=== PATIENT | female | born 1955 | race Caucasian/White ===

== ENCOUNTER 2018-09-27 18:32 | Inpatient (IN) | payer MEDICAID, OTHER ==
[~2018-09-27] VITALS: Ht 167.6 cm; Wt 129.0 kg
[~2018-09-27 18:32] MED LIST: FLUC150T PO; LISI40TA3 PO
[2018-09-27] MEDS ORDERED: SOD CHLORIDE 0.9% 1,000 ML IV STA (18:40)
--- NOTE | 2018-09-27 18:46 | ERD ---
ER Documentation Chief Complaint Chief Complaint bib ra from board and care for mild dystonic reaction due to aod psych meds HPI 62-year-old woman with history of psychiatric illness brought in by EMS from [facility] facility for tonic muscle spasming of the neck and lower face lasted for about 10 to 15 minutes. There was no cyanosis or skin discoloration, no complaints of chest pain or shortness of breath, no vomiting, no loss of bowel or bladder control, and no full body tonic-clonic activity noted. Patient has chronic dysphasia and cognitive debility so HPI was difficult to fully obtain although it was supplemented by speaking to EMS and reviewing facility notes. Patient denies suicidal homicidal ideation. Patient was transported here without further complications ROS All systems reviewed and are negative except as per history of present illness. Medications Home Meds Active Scripts Lisinopril* (Lisinopril*) 40 Mg Tablet, 40 MG PO DAILY, #30 TAB Prov:SIMIN MERINO MD 11/25/15 Fluconazole* (Diflucan*) 150 Mg Tablet, 150 MG PO ONCE, #1 TAB Prov:SIMIN MERINO MD 11/25/15 Allergies Allergies: Coded Allergies: No Known Allergy (Unverified , 09/27/18) PMhx/Soc Morbid obesity, hypertension, psychiatric illness, mild cognitive impairment, chronic expressive dysarthria, possible obstructive sleep apnea, hypertension FmHx Family History: No diabetes Physical Exam Vitals Vital Signs Date Temp Pulse Resp B/P (MAP) Pulse Ox O2 O2 Flow FiO2 Time Delivery Rate 09/27/18 71 18 186/81 95 Nasal 4.0 20:34 (116) Cannula 09/27/18 98.9 86 19 142/81 100 18:41 (101) Physical Exam GENERAL: Well-developed, well-nourished, appears dehydrated, dyspneic, afebrile HEENT: Dry mucous membranes, pink conjunctiva, no cervical spine tenderness or step-off deformities, no goiter, no jaundice or icterus, extraocular movements intact without pain. NEURO: Alert and oriented 2, expressive dysarthria with garbled speech which is her baseline. Moving all extremities, no focal deficits or facial asymmetry, pupils equal round reactive to light CARDIAC: Regular rate and rhythm, no murmurs rubs or gallops LUNGS: Poor breath sounds bilaterally ABDOMEN: Soft nontender, no guarding, no masses. SKIN: Warm and dry to touch, no abrasions, contusions, or hematomas, no lacerations, no ecchymosis, no target lesions, and without ulcers EXTREMITIES: No clubbing cyanosis, pitting and nonpitting edema noted to the lower extremities bilaterally, calves are bilaterally symmetrical, no Homans sign, no popliteal cord sign. Distal pulses equal and bilateral PSYCH: Agitated and anxious no Result Diagram: 09/27/18191009/27/181910 Results 24 hrs Laboratory Tests Test 09/27/18 19:01 09/27/18 19:11 Urine Color STRAW Urine Clarity CLEAR Urine pH 5.0 Urine Specific [place] 1.015 Urine Ketones NEGATIVE mg/dL Urine Nitrite NEGATIVE mg/dL Urine Bilirubin NEGATIVE mg/dL Urine Urobilinogen NEGATIVE mg/dL Urine Leukocyte Esterase NEGATIVE Harpal/ul Urine Hemoglobin NEGATIVE mg/dL Urine Glucose NEGATIVE mg/dL Urine Total Protein NEGATIVE mg/dl White Blood Count 10.3 10^3/ul Red Blood Count 5.00 10^6/ul Hemoglobin 14.2 g/dl Hematocrit 43.2 % Mean Corpuscular Volume 86.4 fl Mean Corpuscular Hemoglobin 28.4 pg Mean Corpuscular Hemoglobin Concent 32.9 g/dl Red Cell Distribution Width 18.2 % Platelet Count 426 10^3/UL Mean Platelet Volume 8.7 fl Immature Granulocytes % 0.200 % Neutrophils % 71.7 % Lymphocytes % 17.8 % Monocytes % 8.6 % Eosinophils % 1.1 % Basophils % 0.6 % Nucleated Red Blood Cells % 0.0 /100WBC Immature Granulocytes # 0.020 10^3/ul Neutrophils # 7.4 10^3/ul Lymphocytes # 1.8 10^3/ul Monocytes # 0.9 10^3/ul Eosinophils # 0.1 10^3/ul Basophils # 0.1 10^3/ul Nucleated Red Blood Cells # 0.0 10^3/ul Sodium Level 135 mmol/L Potassium Level 3.9 mmol/L Chloride Level 98 mmol/L Carbon Dioxide Level 25 mmol/L Anion Gap 12 Blood Urea Nitrogen 26 mg/dl Creatinine 0.79 mg/dl Est Glomerular Filtrat Rate mL/min > 60 mL/min Glucose Level 62 mg/dl Calcium Level 9.6 mg/dl Total Bilirubin 0.3 mg/dl Direct Bilirubin 0.00 mg/dl Indirect Bilirubin 0.3 mg/dl Aspartate Amino Transf (AST/SGOT) 24 IU/L Alanine Aminotransferase (ALT/SGPT) 18 IU/L Alkaline Phosphatase 89 IU/L Troponin I < 0.012 ng/ml Total Protein 8.3 g/dl Albumin 4.3 g/dl Globulin 4.00 g/dl Albumin/Globulin Ratio 1.07 Lipase 35 U/L Current Medications Medications Dose Sig/Marli Start Time Status Last (Trade) Ordered Route PRN Stop Time Admin Dose Reason Admin Lorazepam 1 mg ONCE ONCE 09/27/18 DC 09/27/18 (Ativan) PO 19:00 19:18 09/27/18 19:01 Sodium 1,000 ml @ Q1H STAT 09/27/18 DC 09/27/18 Chloride 1,000 mls/hr IV 18:40 19:19 09/27/18 19:39 Furosemide 40 mg ONCE ONCE 09/27/18 DC 09/27/18 (Lasix) IV 20:30 20:28 09/27/18 20:31 Procedures/MDM IV line was established patient was placed on air sampling and monitoring rhythm strip revealed a sinus rhythm at about 80 bpm with upright P and T waves. Patient was afebrile EKG performed, read by me revealed a normal sinus rhythm at 88 bpm, left axis deviation, right ventricular conduction delay QRS duration 102 ms, no concerning ST elevations or depressions noted I administered lorazepam 1 mg p.o. and 300 cc normal saline IV for initial dehydration. 1 view chest x-ray performed, read by me reveals cardiomegaly and bilateral pulmonary vascular congestion consistent with decompensated heart failure. Peters catheter was placed and administered furosemide 40 mg IV x1 CBC was normal, electrolytes revealed dehydration with a BUN/creatinine of 26/0.8, liver function tests were normal, troponin was negative, urinalysis was negative for infection. Patient's room air oxygenation is between 90-92% it appears she does have some component of obstructive sleep apnea but given her chest x-ray she will be admitted to telemetry setting for continued diuresis and cardiology consultation for possible decompensated heart failure. Departure Diagnosis: Primary Impression: Psychiatric illness Additional Impressions: Dehydration CHF (congestive heart failure) Heart failure type: combined systolic and diastolic Heart failure chronicity: acute Qualified Codes: I50.41 - Acute combined systolic (congestive) and diastolic (congestive) heart failure Condition: LAISHA Ellison MD Sep 27, 2018 18:46
[2018-09-27] MEDS ORDERED: LORAZEPAM 1 MG TAB PO ONE (19:00)
[2018-09-27] MEDS ORDERED: FUROSEMIDE 40 MG INJ IV ONE (20:30)
[2018-09-28] VITALS (13 sets, daily range): BP systolic 138–177; BP diastolic 65–76; PULSE 68–87; RESP 21–24; Ht 167.6 cm; Wt 129.0 kg
[2018-09-28] MEDS ORDERED: NACL 0.9% 3 ML SYG IV SCH (03:00)
[2018-09-28] MEDS ORDERED: ALBUTEROL/IPRATROPIUM (NEB) 3 ML AMP HHN PRN (03:00)
[2018-09-28] MEDS ORDERED: ONDANSETRON 4 MG INJ IV PRN (03:00)
[2018-09-28] MEDS: SOD CHLORIDE 0.9% 1,000 ML IV SCH ×2 (03:40→14:20)
[2018-09-28] MEDS: ACETAMINOPHEN 325 MG TAB PO PRN (03:41)
[2018-09-28] MEDS: LORAZEPAM 2 MG INJ IV PRN ×2 (03:54→22:24)
[2018-09-28] MEDS ORDERED: HYDROmorphONE 1 MG/ML SYG IV ONE (04:30)
[2018-09-28] MEDS: LEVOFLOXACIN 500MG/D5W (PMX) 100 ML IVPB SCH (05:01)
--- NOTE | 2018-09-28 08:05 | HP ---
Date/Time of Note Date/Time of Note DATE: 09/28/18 TIME: 07:58 Assessment/Plan VTE Prophylaxis Pharmacological prophylaxis: heparin Lines/Catheters IV Catheter Type (from Nrs): Saline Lock Urinary Cath still in place: Yes Reason Cath still needed: terminal illness/intractable pain Assessment/Plan Assessment/Plan 1. Frequent falls, slurred speech, rule out CVA. Symptom could also be medication induced. (Reportedly patient have taken extra pills of her home medication, unknown which kind) -Head CT negative for acute findings. Patient attributed her worsening slurred speech to schizophrenia -Telemetry monitoring -MRI of the brain, carotid Doppler ultrasound and 2D echo -Aspirin, statin -PT eval 2. History of schizophrenia: Patient reported that she gets periodic injections. No suicidal homicidal ideation 3. Hypertension: BP is acceptable range. Continue home meds 4. Morbid obesity with a BMI of 46: Weight reduction advised Result Diagram: 09/28/18 0359 09/28/18 0359 Results 24hrs Laboratory Tests Test 09/27/18 19:01 09/27/18 19:11 09/28/18 03:59 Urine Color STRAW Urine Clarity CLEAR Urine pH 5.0 Urine Specific [place] 1.015 Urine Ketones NEGATIVE Urine Nitrite NEGATIVE Urine Bilirubin NEGATIVE Urine Urobilinogen NEGATIVE Urine Leukocyte Esterase NEGATIVE Urine Hemoglobin NEGATIVE Urine Glucose NEGATIVE Urine Total Protein NEGATIVE White Blood Count 10.3 11.0 H Red Blood Count 5.00 4.78 Hemoglobin 14.2 13.8 Hematocrit 43.2 41.6 Mean Corpuscular Volume 86.4 87.0 Mean Corpuscular Hemoglobin 28.4 L 28.9 L Mean Corpuscular Hemoglobin Concent 32.9 33.2 Red Cell Distribution Width 18.2 H 18.3 H Platelet Count 426 H 387 Mean Platelet Volume 8.7 8.9 Immature Granulocytes % 0.200 0.300 Neutrophils % 71.7 78.7 H Lymphocytes % 17.8 13.1 L Monocytes % 8.6 7.0 Eosinophils % 1.1 0.4 Basophils % 0.6 0.5 Nucleated Red Blood Cells % 0.0 0.0 Immature Granulocytes # 0.020 0.030 Neutrophils # 7.4 8.7 H Lymphocytes # 1.8 1.5 Monocytes # 0.9 0.8 Eosinophils # 0.1 0.0 Basophils # 0.1 0.1 Nucleated Red Blood Cells # 0.0 0.0 Sodium Level 135 140 Potassium Level 3.9 4.3 Chloride Level 98 100 Carbon Dioxide Level 25 27 Anion Gap 12 13 Blood Urea Nitrogen 26 H 23 H Creatinine 0.79 0.64 Est Glomerular Filtrat Rate mL/min > 60 > 60 Glucose Level 62 L 102 # Calcium Level 9.6 9.2 Total Bilirubin 0.3 0.4 Direct Bilirubin 0.00 0.00 Indirect Bilirubin 0.3 0.4 Aspartate Amino Transf (AST/SGOT) 24 24 Alanine Aminotransferase (ALT/SGPT) 18 22 Alkaline Phosphatase 89 70 Troponin I < 0.012 < 0.012 Total Protein 8.3 H 6.8 # Albumin 4.3 3.7 Globulin 4.00 H 3.10 Albumin/Globulin Ratio 1.07 1.19 Lipase 35 Hemoglobin A1c 7.8 H Magnesium Level 1.9 Creatine Kinase 173 Creatine Kinase Index 1.1 Creatinine Kinase MB (Mass) 1.97 Triglycerides Level 67 Cholesterol Level 112 LDL Cholesterol, Calculated 45 HDL Cholesterol 54 Cholesterol/HDL Ratio 2.0 Thyroid Stimulating Hormone (TSH) Pending HPI/ROS Admit Date/Time Admit Date/Time Sep 27, 2018 at 20:23 Hx of Present Illness Patient is a 62-year-old morbidly obese female with a history of hypertension, schizophrenia who presents the ER complaining of frequent falls and generalized weakness. She said that she fell down 3 times yesterday twice at the [facility] and one at the [facility] pharmacy. The first time, she was dressing up when she fell. Denied loss of consciousness or head injury. When she was at [facility], she was just walking when she all of a sudden blacked out. The same thing happened her again at her house in the kitchen where she blacked out. She also reported having had left upper extremity weakness and then right upper extremity weakness a few days ago. Patient may have taken extra doses of her home medications. As further treatment for schizophrenia is concerned, she said she periodically gets injections. Denied chest pain, lightheadedness or palpitations. Patient has slurred speech. She said she had a minimal slurred s peech in the past, which has worsened since yesterday. She denied a history of stroke and attributed to her slurred speech to her schizophrenia. Patient also had similar symptoms last week and went to [facility] where she had a negative head CT in the ER. When she presented to the ER, vitals were stable. Head CT without acute findings. EKG without ST-T wave abnormalities PMH/Family/Social Past Medical History Medical History: other (See HPI) Medications Current Medications Sodium Chloride 1,000 ml @ 80 mls/hr [id number] IV Last administered on 09/28/18at 03:40; Admin Dose 80 MLS/HR; Start 09/28/18 at 02:51; Stop 09/29/18 at 09:00 IV Flush (NS 3 ml) 3 ml PER PROTOCOL IV ; Start 09/28/18 at 03:00 Lorazepam (Ativan) 0.5 mg Q6H PRN IV .ANXIETY Last administered on 09/28/18at 03:54; Admin Dose 0.5 MG; Start 09/28/18 at 03:00 Ondansetron HCl (Zofran Inj) 4 mg Q6H PRN IV NAUSEA/VOMITING; Start 09/28/18 at 03:00 Aspirin (Aspirin) 81 mg DAILY PO ; Start 09/28/18 at 09:00 Acetaminophen (Tylenol Tab) 650 mg Q6H PRN PO .PAIN 1-3 OR TEMP Last administered on 09/28/18at 03:41; Admin Dose 650 MG; Start 09/28/18 at 03:00 Heparin Sodium (Porcine) (Heparin (5000 Units/1ml)) 5,000 unit Q12 SC ; Start 09/28/18 at 09:00 Albuterol/ Ipratropium (Duoneb) 3 ml Q2H RESP THERAPY PRN HHN SHORTNESS OF MARNIE ATH; Start 09/28/18 at 03:00 Lisinopril (Zestril) 40 mg DAILY PO ; Start 09/28/18 at 09:00 Levofloxacin/ Dextrose 100 ml @ 100 mls/hr DAILY@0600 IVPB Last administered on 09/28/18at 05:01; Admin Dose 100 MLS/HR; Start 09/28/18 at 06:00 Coded Allergies: No Known Allergy (Unverified , 09/27/18) Past Surgical History Past Surgical Hx: other (See HPI) Family History Significant Family History: no pertinent family hx Social History Alcohol Use: none Smoking Status: Current every day smoker Drug Use: none Exam/Review of Systems Vital Signs Vitals Vital Signs Date Temp Pulse Resp B/P (MAP) Pulse Ox O2 O2 Flow FiO2 Time Delivery Rate 09/28/18 98.1 80 21 170/72 96 07:26 (104) 09/28/18 Nasal 04:03 Cannula 09/28/18 2.0 28 03:10 Intake and Output 09/27/18 09/27/18 09/28/18 1414:59 22:59 06:59 IntakeIntake Total 1350 ml OutputOutput Total 2800 ml BalanceBalance -1450 ml Exam Constitutional: other (No acute distress) Head: normocephalic, atraumatic Eyes: EOMI, PERRL Respiratory: clear to auscultation Cardiovascular: regular rate and rhythm, nl pulses Gastrointestinal: soft, non-tender Extremities: normal pulses Neurological: nl mental status, nl strength, other (Slurred speech) GIGI NOGUEIRA MD Sep 28, 2018 08:05
[2018-09-28] MEDS: LISINOPRIL 20 MG TAB PO SCH (09:05)
[2018-09-28] MEDS: HEPARIN 5,000 UNIT/1 ML VIAL SC SCH ×2 (09:12→20:10)
[2018-09-28] MEDS: ASPIRIN 81 MG TAB PO SCH (09:12)
[2018-09-28] MEDS ORDERED: HYDR-3670 PO (09:39)
[2018-09-28] MEDS ORDERED: MTF1000T PO (09:39)
[2018-09-28] MEDS ORDERED: HYDR-843 PO (09:39)
[2018-09-28] MEDS ORDERED: FURO20TA3 PO (09:39)
[2018-09-28] MEDS ORDERED: FURO40TA4 PO (09:39)
--- NOTE | 2018-09-28 09:50 | PN ---
Date/Time of Note Date/Time of Note DATE: 09/28/18 TIME: 09:45 Assessment/Plan VTE Prophylaxis Risk score (from Ns)>0 risk: 10 SCD applied (from Ns): Yes Pharmacological prophylaxis: heparin Lines/Catheters IV [facility]from [facility] Saline Lock Urinary Cath still in place: Yes Reason Cath still needed: other (indicate) (monitor I&O) Assessment/Plan Hospital Course 1. Frequent falls, slurred speech, rule out CVA. - possibly medication induced. (Reportedly patient had taken extra pills of her home medication, unknown which kind) -Head CT negative for acute findings. Patient attributed her worsening slurred speech to schizophrenia? - MRI brain and carotid doppler pending -echo pending -Aspirin, statin -PT and ST eval 2. History of schizophrenia: - Patient reported that she gets periodic injections. No suicidal homicidal ideation - Monitor for now 3. Hypertension: - continue antihypertensives - adjust as needed 4. Morbid obesity with a BMI of 46: - Weight reduction advised - dietary consultation 5. Suspect sciatica - PT eal - analgesic prn - weight reduction advised. dispo/plan: Await further MRI brain imaging. f/u carotid. Await PT/ST eval Discussed POC with Dr. Duron Result Diagram: 09/28/18 0359 09/28/18 0359 Results 24hrs Laboratory Tests Test 09/27/18 19:01 09/27/18 19:11 09/28/18 03:59 Urine Color STRAW Urine Clarity CLEAR Urine pH 5.0 Urine Specific [place] 1.015 Urine Ketones NEGATIVE Urine Nitrite NEGATIVE Urine Bilirubin NEGATIVE Urine Urobilinogen NEGATIVE Urine Leukocyte Esterase NEGATIVE Urine Hemoglobin NEGATIVE Urine Glucose NEGATIVE Urine Total Protein NEGATIVE White Blood Count 10.3 11.0 H Red Blood Count 5.00 4.78 Hemoglobin 14.2 13.8 Hematocrit 43.2 41.6 Mean Corpuscular Volume 86.4 87.0 Mean Corpuscular Hemoglobin 28.4 L 28.9 L Mean Corpuscular Hemoglobin Concent 32.9 33.2 Red Cell Distribution Width 18.2 H 18.3 H Platelet Count 426 H 387 Mean Platelet Volume 8.7 8.9 Immature Granulocytes % 0.200 0.300 Neutrophils % 71.7 78.7 H Lymphocytes % 17.8 13.1 L Monocytes % 8.6 7.0 Eosinophils % 1.1 0.4 Basophils % 0.6 0.5 Nucleated Red Blood Cells % 0.0 0.0 Immature Granulocytes # 0.020 0.030 Neutrophils # 7.4 8.7 H Lymphocytes # 1.8 1.5 Monocytes # 0.9 0.8 Eosinophils # 0.1 0.0 Basophils # 0.1 0.1 Nucleated Red Blood Cells # 0.0 0.0 Sodium Level 135 140 Potassium Level 3.9 4.3 Chloride Level 98 100 Carbon Dioxide Level 25 27 Anion Gap 12 13 Blood Urea Nitrogen 26 H 23 H Creatinine 0.79 0.64 Est Glomerular Filtrat Rate mL/min > 60 > 60 Glucose Level 62 L 102 # Calcium Level 9.6 9.2 Total Bilirubin 0.3 0.4 Direct Bilirubin 0.00 0.00 Indirect Bilirubin 0.3 0.4 Aspartate Amino Transf (AST/SGOT) 24 24 Alanine Aminotransferase (ALT/SGPT) 18 22 Alkaline Phosphatase 89 70 Troponin I < 0.012 < 0.012 Total Protein 8.3 H 6.8 # Albumin 4.3 3.7 Globulin 4.00 H 3.10 Albumin/Globulin Ratio 1.07 1.19 Lipase 35 Hemoglobin A1c 7.8 H Magnesium Level 1.9 Creatine Kinase 173 Creatine Kinase Index 1.1 Creatinine Kinase MB (Mass) 1.97 Triglycerides Level 67 Cholesterol Level 112 LDL Cholesterol, Calculated 45 HDL Cholesterol 54 Cholesterol/HDL Ratio 2.0 Thyroid Stimulating Hormone (TSH) Pending Subjective 24 Hr Interval Summary Free Text/Dictation reports having low back pain that shoots down her legs Exam/Review of Systems Exam Vitals Vital Signs Date Temp Pulse Resp B/P (MAP) Pulse Ox O2 O2 Flow FiO2 Time Delivery Rate 09/28/18 87 08:19 09/28/18 98.1 21 170/72 96 07:26 (104) 09/28/18 Nasal 04:03 Cannula 09/28/18 2.0 28 03:10 Intake and Output 09/27/18 09/27/18 09/28/18 1515:00 23:00 07:00 IntakeIntake Total 1350 ml OutputOutput Total 2800 ml BalanceBalance -1450 ml Constitutional: alert, oriented, obese Head: normocephalic Respiratory: clear to auscultation, normal air movement Cardiovascular: other (regular rate ) Gastrointestinal: soft; No tender 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, nl mental status, nl speech Skin: nl turgor Results Results 24hrs Laboratory Tests Test 09/27/18 19:01 09/27/18 19:11 09/28/18 03:59 Urine Color STRAW Urine Clarity CLEAR Urine pH 5.0 Urine Specific [place]on 1.015 Urine Ketones NEGATIVE Urine Nitrite NEGATIVE Urine Bilirubin NEGATIVE Urine Urobilinogen NEGATIVE Urine Leukocyte Esterase NEGATIVE Urine Hemoglobin NEGATIVE Urine Glucose NEGATIVE Urine Total Protein NEGATIVE White Blood Count 10.3 11.0 H Red Blood Count 5.00 4.78 Hemoglobin 14.2 13.8 Hematocrit 43.2 41.6 Mean Corpuscular Volume 86.4 87.0 Mean Corpuscular Hemoglobin 28.4 L 28.9 L Mean Corpuscular Hemoglobin Concent 32.9 33.2 Red Cell Distribution Width 18.2 H 18.3 H Platelet Count 426 H 387 Mean Platelet Volume 8.7 8.9 Immature Granulocytes % 0.200 0.300 Neutrophils % 71.7 78.7 H Lymphocytes % 17.8 13.1 L Monocytes % 8.6 7.0 Eosinophils % 1.1 0.4 Basophils % 0.6 0.5 Nucleated Red Blood Cells % 0.0 0.0 Immature Granulocytes # 0.020 0.030 Neutrophils # 7.4 8.7 H Lymphocytes # 1.8 1.5 Monocytes # 0.9 0.8 Eosinophils # 0.1 0.0 Basophils # 0.1 0.1 Nucleated Red Blood Cells # 0.0 0.0 Sodium Level 135 140 Potassium Level 3.9 4.3 Chloride Level 98 100 Carbon Dioxide Level 25 27 Anion Gap 12 13 Blood Urea Nitrogen 26 H 23 H Creatinine 0.79 0.64 Est Glomerular Filtrat Rate mL/min > 60 > 60 Glucose Level 62 L 102 # Calcium Level 9.6 9.2 Total Bilirubin 0.3 0.4 Direct Bilirubin 0.00 0.00 Indirect Bilirubin 0.3 0.4 Aspartate Amino Transf (AST/SGOT) 24 24 Alanine Aminotransferase (ALT/SGPT) 18 22 Alkaline Phosphatase 89 70 Troponin I < 0.012 < 0.012 Total Protein 8.3 H 6.8 # Albumin 4.3 3.7 Globulin 4.00 H 3.10 Albumin/Globulin Ratio 1.07 1.19 Lipase 35 Hemoglobin A1c 7.8 H Magnesium Level 1.9 Creatine Kinase 173 Creatine Kinase Index 1.1 Creatinine Kinase MB (Mass) 1.97 Triglycerides Level 67 Cholesterol Level 112 LDL Cholesterol, Calculated 45 HDL Cholesterol 54 Cholesterol/HDL Ratio 2.0 Thyroid Stimulating Hormone (TSH) Pending Medications Medication Current Medications Sodium Chloride 1,000 ml @ 80 mls/hr [id number] IV Last administered on 09/28/18 03:40; Admin Dose 80 MLS/HR; Start 09/28/18 at 02:51; Stop 09/29/18 at 09:00 IV Flush (NS 3 ml) 3 ml PER PROTOCOL IV ; Start 09/28/18 at 03:00 Lorazepam (Ativan) 0.5 mg Q6H PRN IV .ANXIETY Last administered on 09/28/18 03:54; Admin Dose 0.5 MG; Start 09/28/18 at 03:00 Ondansetron HCl (Zofran Inj) 4 mg Q6H PRN IV NAUSEA/VOMITING; Start 09/28/18 at 03:00 Aspirin (Aspirin) 81 mg DAILY PO Last administered on 09/28/18 09:12; Admin Dose 81 MG; Start 09/28/18 at 09:00 Acetaminophen (Tylenol Tab) 650 mg Q6H PRN PO .PAIN 1-3 OR TEMP Last administered on 09/28/18 03:41; Admin Dose 650 MG; Start 09/28/18 at 03:00 Heparin Sodium (Porcine) (Heparin (5000 Units/1ml)) 5,000 unit Q12 SC Last administered on 09/28/18 09:12; Admin Dose 5,000 UNIT; Start 09/28/18 at 09:00 Albuterol/ Ipratropium (Duoneb) 3 ml Q2H RESP THERAPY PRN HHN SHORTNESS OF BREATH; Start 09/28/18 at 03:00 Lisinopril (Zestril) 40 mg DAILY PO Last administered on 09/28/18 09:05; Admin Dose 40 MG; Start 09/28/18 at 09:00 Levofloxacin/ Dextrose 100 ml @ 100 mls/hr DAILY@0600 IVPB Last administered on 09/28/18 05:01; Admin Dose 100 MLS/HR; Start 09/28/18 at 06:00 GILBERTO MITCHELL NP Sep 28, 2018 09:50
[2018-09-28] MEDS: HYDROCODONE/APAP (5/325) TAB PO PRN ×2 (10:48→20:04)
[2018-09-28] MEDS ORDERED: HYDROCODONE/APAP (5/325) TAB PO PRN (11:00)
[2018-09-28] MEDS: morphine 2 MG INJ IV PRN ×2 (12:02→15:58)
--- NOTE | 2018-09-28 13:49 | RADRPT ---
Echocardiogram Report Patient Name: ROSE BAIPatient ID: [id number] : [id number] (62y 12m)Study Date: 09/28/2018 12:33:09 PM Gender: FAccession #: [id number] Tech: Kell Palacios [facility] Location: [facility] Ref.Physician: GIGI NOGUEIRA Height(Cm): BSA: Weight(Kg): Quality: Technically Difficult StudyOrder Physician: GIGI NOGUEIRA Account #: Procedures: Echocardiographic Report: Transthoracic echocardiogram with complete 2D, M-Mode, and doppler examination. Indications: Transient Ischemic Attack. Measurements: 2D/M Mode Doppler Measurement Value Normal Range Measurement Value Normal Range LVIDd 2D 4.0 [ 3.8 - 5.2 ] cm AV Peak Chavo 1.3 [ 100.0 - 170.0 ] cm/se c LVIDs 2D 2.8 [ 2.2 - 3.5 ] cm AV Peak PG 6.0 [ 2.0 - 9.0 ] mmHg LVPWd 2D 0.8 [ 0.6 - 0.9 ] cm LVOT Peak Chavo 0.8 [ 70.0 - 110.0 ] cm/sec IVSd 2D 0.9 [ 0.6 - 0.9 ] cm LVOT Peak PG 2.0 [ 2.0 - 6.0 ] mmHg AoR Diam 2D 2.0 [ 2.3 - 3.1 ] cm MV E Peak Chavo 0.9 [ 60.0 - 130.0 ] cm/sec EDV 2D 71.3 [ 46.0 - 106.0 ] ml MV A Peak Chavo 0.8 [ 100.0 - 120.0 ] cm/se c ESV 2D 28.3 [ 14.0 - 42.0 ] ml MV E/A 1.1 [ 0.8 - 1.5 ] ratio EF 2D 60.3 [ 54.0 - 74.0 ] percent MV PHT 63.0 [ 20.0 - 100.0 ] msec LA Dimen 2D 4.0 [ 2.7 - 3.8 ] cm MV Decel Time 215 [ 104 - 258 ] msec MV Decel Merrick 4 Lat E` Chavo 0.1 [ 10.0 - 15.0 ] cm/sec Lateral E/E` 14.6 [ 1.0 - 2.0 ] ratio Med E` Chavo 0.1 cm/sec MV E/A 1.1 [ 0.8 - 1.5 ] ratio MVA PHT 3.5 [ 2.0 - 4.0 ] cm2 Findings: Left Ventricle: Normal left ventricular systolic function. Normal left ventricular cavity size. Normal left ventricular wall thickness. Ejection fraction is visually estimated at 55-60 %. Tissue Doppler/Mitral Doppler indices are within normal limits. Right Ventricle: Normal right ventricular size. Normal right ventricular systolic function. Left Atrium: The left atrium is normal in size. Right Atrium: The right atrium is normal in size. Atrial Septum: Normal atrial septum. Ventricular septum: Normal/intact ventricular septum. Mitral Valve: Normal appearance of the mitral valve. No mitral valve regurgitation is seen. Aortic Valve: Normal appearance of the aortic valve. No aortic regurgitation. Tricuspid Valve: Normal appearance of the tricuspid valve. Unable to obtain RVSP due to minimal presence of tricuspid regurgitation. Physiologic tricuspid regurgitation. Pericardium: Normal pericardium with no significant pericardial effusion. Aorta: Normal aortic root. IVC: The IVC is not well visualized. Conclusions: Normal left ventricular systolic function. Normal left ventricular cavity size. Normal left ventricular wall thickness. Ejection fraction is visually estimated at 55-60 %. Tissue Doppler/Mitral Doppler indices are within normal limits. poor acoustic windows. Electronically Signed By: Pipe Raines 2018-09-28 13:48:32 PDT
[2018-09-28] MEDS ORDERED: GABAPENTIN 100 MG CAP PO ONE (22:35)
[2018-09-29] VITALS (10 sets, daily range): BP systolic 140–175; BP diastolic 65–80; PULSE 63–87; RESP 18–24
[2018-09-29] MEDS: morphine 2 MG INJ IV PRN ×6 (00:53→21:37)
[2018-09-29] MEDS: HYDROCODONE/APAP (5/325) TAB PO PRN (03:43)
[2018-09-29] MEDS: SOD CHLORIDE 0.9% 1,000 ML IV SCH (03:51)
[2018-09-29] MEDS: LEVOFLOXACIN 500MG/D5W (PMX) 100 ML IVPB SCH (05:40)
[2018-09-29] MEDS: LISINOPRIL 20 MG TAB PO SCH (09:07)
[2018-09-29] MEDS: ASPIRIN 81 MG TAB PO SCH (09:07)
[2018-09-29] MEDS: HEPARIN 5,000 UNIT/1 ML VIAL SC SCH ×2 (09:14→20:52)
--- NOTE | 2018-09-29 11:45 | PN ---
Date/Time of Note Date/Time of Note DATE: 09/29/18 TIME: 11:45 Assessment/Plan VTE Prophylaxis Risk score (from Nsg)>0 risk: 4 SCD applied (from Ns): No SCD contraindicated: other Pharmacological prophylaxis: heparin Lines/Catheters IV Catheter Type (from [facility] [place] [facility] Urinary Cath still in place: Yes Reason Cath still needed: other (indicate) Assessment/Plan Hospital Course SUBJECTIVE: Denies any pain. OBJECTIVE: Physical Exam General: Obese, 62 year-old female lying in bed in no apparent distress. HEENT: Normocephalic, atraumatic. Eyes: Anicteric sclerae, conjunctivae clear. ENT: Nasal septum midline, oral mucosa moist. Neck: short and obese. Respiratory: Bilaterally diminished breath sounds. No use of accessory muscles of respiration. Bilateral rales.Cardiovascular: S1, S2 heard. No murmurs or gallops. Abdomen: Soft, nontender, and nondistended. Bowel sounds positive in all 4 quadrants. Genitourinary: Deferred. Extremities: No cyanosis, no clubbing. B/L LE trace edema. Peripheral pulses palpable. Neurologic: Cranial nerves II through XII grossly intact. The patient is awake, alert, and oriented. Skin: Normal skin turgor. No skin rashes. Labs & Vitals per chart ASSESSMENT & PLAN 62-year-old female with comorbidities including hypertension, schizophrenia, and morbid obesity, who was brought in by rescue ambulance from a [facility] for further evaluation of multiple falls, who was admitted to inpatient setting for further treatment and evaluation. 1. Frequent falls Antipsychotics have been held. Ruled out for any underlying acute stroke. Unable to do MRI because of weight limits. PT evaluation. 2. Hypertension. Continue antihypertensives. 3. Morbid obesity. BMI 46 kg/m. Weight reduction will be advised. 4. Diabetes mellitus. Hemoglobin A1c 7.8. Restart metformin and insulin. 5. Diastolic heart failure. Continue diuretics. 6. Nicotine use. Cessation advised. 7. Schizophrenia. Takes monthly Paliperidone injections IM. 8. Fluids, electrolytes, and nutrition. Carbohydrate controlled diet. 9. DVT prophylaxis. Subcutaneous heparin. 10. Plan. Continue PT. Discharge disposition is to board and care once cleared by PT. Move the patient to Med/Surg. The patient was seen in collaboration with Dr. Lanier. Result Diagram: 09/29/18 0506 09/29/18 0506 Results 24hrs Laboratory Tests Test 09/29/18 05:06 White Blood Count 8.2 # Red Blood Count 4.39 Hemoglobin 12.7 Hematocrit 39.3 Mean Corpuscular Volume 89.5 Mean Corpuscular Hemoglobin 28.9 L Mean Corpuscular Hemoglobin Concent 32.3 Red Cell Distribution Width 18.6 H Platelet Count 385 Mean Platelet Volume 8.8 Immature Granulocytes % 0.400 Neutrophils % 66.0 Lymphocytes % 18.6 Monocytes % 11.3 H Eosinophils % 3.1 Basophils % 0.6 Nucleated Red Blood Cells % 0.0 Immature Granulocytes # 0.030 Neutrophils # 5.4 Lymphocytes # 1.5 Monocytes # 0.9 Eosinophils # 0.3 Basophils # 0.1 Nucleated Red Blood Cells # 0.0 Sodium Level 138 Potassium Level 4.3 Chloride Level 101 Carbon Dioxide Level 28 Anion Gap 9 Blood Urea Nitrogen 13 # Creatinine 0.51 Est Glomerular Filtrat Rate mL/min > 60 Glucose Level 156 Calcium Level 8.8 Phosphorus Level 3.8 Magnesium Level 2.0 Exam/Review of Systems Exam Vitals Vital Signs Date Temp Pulse Resp B/P (MAP) Pulse Ox O2 O2 Flow FiO2 Time Delivery Rate 09/29/18 73 08:00 09/29/18 Nasal 4.0 08:00 Cannula 09/29/18 98.0 20 164/74 96 07:40 (104) 09/29/18 28 01:38 Intake and Output 09/28/18 09/28/18 09/29/18 1515:00 23:00 07:00 IntakeIntake Total 500 ml 640 ml 2530 ml OutputOutput Total 600 ml 1950 ml 2500 ml BalanceBalance -100 ml -1310 ml 30 ml Results Results 24hrs Laboratory Tests Test 09/29/18 05:06 White Blood Count 8.2 # Red Blood Count 4.39 Hemoglobin 12.7 Hematocrit 39.3 Mean Corpuscular Volume 89.5 Mean Corpuscular Hemoglobin 28.9 L Mean Corpuscular Hemoglobin Concent 32.3 Red Cell Distribution Width 18.6 H Platelet Count 385 Mean Platelet Volume 8.8 Immature Granulocytes % 0.400 Neutrophils % 66.0 Lymphocytes % 18.6 Monocytes % 11.3 H Eosinophils % 3.1 Basophils % 0.6 Nucleated Red Blood Cells % 0.0 Immature Granulocytes # 0.030 Neutrophils # 5.4 Lymphocytes # 1.5 Monocytes # 0.9 Eosinophils # 0.3 Basophils # 0.1 Nucleated Red Blood Cells # 0.0 Sodium Level 138 Potassium Level 4.3 Chloride Level 101 Carbon Dioxide Level 28 Anion Gap 9 Blood Urea Nitrogen 13 # Creatinine 0.51 Est Glomerular Filtrat Rate mL/min > 60 Glucose Level 156 Calcium Level 8.8 Phosphorus Level 3.8 Magnesium Level 2.0 Medications Medication Current Medications IV Flush (NS 3 ml) 3 ml PER PROTOCOL IV ; Start 09/28/18 at 03:00 Lorazepam (Ativan) 0.5 mg Q6H PRN IV .ANXIETY Last administered on 09/28/18 22:24; Admin Dose 0.5 MG; Start 09/28/18 at 03:00 Ondansetron HCl (Zofran Inj) 4 mg Q6H PRN IV NAUSEA/VOMITING; Start 09/28/18 at 03:00 Aspirin (Aspirin) 81 mg DAILY PO Last administered on 09/29/18 09:07; Admin Dose 81 MG; Start 09/28/18 at 09:00 Acetaminophen (Tylenol Tab) 650 mg Q6H PRN PO .PAIN 1-3 OR TEMP Last administered on 09/28/18 03:41; Admin Dose 650 MG; Start 09/28/18 at 03:00 Heparin Sodium (Porcine) (Heparin (5000 Units/1ml)) 5,000 unit Q12 SC Last administered on 09/29/18 09:14; Admin Dose 5,000 UNIT; Start 09/28/18 at 09:00 Albuterol/ Ipratropium (Duoneb) 3 ml Q2H RESP THERAPY PRN HHN SHORTNESS OF BREATH; Start 09/28/18 at 03:00 Lisinopril (Zestril) 40 mg DAILY PO Last administered on 09/29/18 09:07; Admin Dose 40 MG; Start 09/28/18 at 09:00 Levofloxacin/ Dextrose 100 ml @ 100 mls/hr DAILY@0600 IVPB Last administered on 09/29/18 05:40; Admin Dose 100 MLS/HR; Start 09/28/18 at 06:00 Morphine Sulfate (morphine) 2 mg Q4H PRN IV SEVERE PAIN LEVEL 7-10 Last administered on 09/29/18 09:15; Admin Dose 2 MG; Start 09/28/18 at 11:00 Acetaminophen/ Hydrocodone Bitart ([place] (5/325)) 1 tab Q4H PRN PO MODERATE PAIN LEVEL 4-6; Start 09/28/18 at 11:00 Acetaminophen/ Hydrocodone Bitart ([place] (5/325)) 2 tab Q4H PRN PO MODERATE PAIN LEVEL 4-6 Last administered on 09/29/18at 03:43; Admin Dose 2 TAB; Start 09/28/18 at 11:00 Nystatin (Nystatin Powder) 1 applic BID TOP ; Start 09/29/18 at 09:00 RENÉ ALDANA NP Sep 29, 2018 11:45
[2018-09-29] MEDS ORDERED: DEXTROSE 50% 50 ML SYRINGE IV PRN ×2 (12:30)
[2018-09-29] MEDS ORDERED: GLUCOSE GEL 15 GRAM TUBE BUCCAL PRN (12:30)
[2018-09-29] MEDS ORDERED: GLUCOSE GEL 15 GRAM TUBE PO PRN ×2 (12:30)
[2018-09-29] MEDS ORDERED: GLUCAGON 1 MG INJ IM PRN (12:30)
[2018-09-29] MEDS: GABAPENTIN 300 MG CAP PO SCH ×2 (13:10→20:52)
[2018-09-29] MEDS: FUROSEMIDE 20 MG INJ IV SCH (13:10)
[2018-09-29] MEDS: NYSTATIN 30 GM POWDER BTL TOP SCH ×2 (13:11→20:52)
[2018-09-29] MEDS: ACETAMINOPHEN 325 MG TAB PO PRN (16:33)
[2018-09-29] MEDS: INSULIN ASPART [NOVOLOG] 3 ML PEN SC SCH ×3 (17:16→20:41)
[2018-09-29] MEDS: metFORMIN 500 MG TAB PO SCH (17:17)
[2018-09-29] MEDS ORDERED: INSULIN GLARGINE [LANTus] (100 UNITS/ML) SYG SC SCH (20:00)
[2018-09-30] MEDS: HYDROCODONE/APAP (5/325) TAB PO PRN ×3 (00:25→14:00)
[2018-09-30] MEDS: DICLOFENAC SODIUM 1% GEL 100 GM TUBE TP SCH ×2 (01:01→08:15)
[2018-09-30] MEDS: morphine 2 MG INJ IV PRN ×3 (01:46→09:46)
[2018-09-30 02:00] VITALS: BP 133/62; PULSE 67; RESP 18
[2018-09-30 07:15] VITALS: BP 141/60; PULSE 71; RESP 18
[2018-09-30] MEDS: GABAPENTIN 300 MG CAP PO SCH ×2 (08:14→12:29)
[2018-09-30] MEDS: ASPIRIN 81 MG TAB PO SCH (08:14)
[2018-09-30] MEDS: LISINOPRIL 20 MG TAB PO SCH (08:15)
[2018-09-30] MEDS: metFORMIN 500 MG TAB PO SCH (08:15)
[2018-09-30] MEDS: FUROSEMIDE 20 MG INJ IV SCH (08:16)
[2018-09-30] MEDS: INSULIN ASPART [NOVOLOG] 3 ML PEN SC SCH ×4 (08:17→12:26)
[2018-09-30] MEDS: HEPARIN 5,000 UNIT/1 ML VIAL SC SCH (08:19)
[2018-09-30] MEDS ORDERED: POLYETHYLENE GLYCOL 17 GM PACKET PO SCH (09:00)
[2018-09-30] MEDS ORDERED: DOCUSATE SODIUM 100 MG CAP PO SCH (09:00)
[2018-09-30] MEDS ORDERED: AMLODIPINE 5 MG TAB PO SCH (09:00)
[2018-09-30] MEDS: NYSTATIN 30 GM POWDER BTL TOP SCH (09:50)
--- NOTE | 2018-09-30 11:00 | DS ---
Date/Time of Note Date/Time of Note DATE: 09/30/18 TIME: 11:00 Discharge Summary Admission/Discharge Info Admit Date/Time Sep 27, 2018 at 20:23 Discharge Date/Time Discharge Diagnosis 1. Frequent falls. 2. Hypertension. 3. Morbid obesity. BMI 46 kg/m. 4. Diabetes mellitus. Hemoglobin A1c 7.8. 5. Diastolic heart failure. 6. Nicotine use. 7. Schizophrenia. Patient Condition: Stable Consults CURES Report Number of Records: 1 Start Date: 09/30/2017 End Date: 09/30/2018 Date Filled Last Name First Name Address Drug Name Form Str Qty Days Sup. PHY Name PHY# Presc. TATYANA# Prescriber Name RX# Refill# 2018-09-23 RICHARDSON ROSE [address] [place] [address] OXYCODONE HCLACETAMINOPHEN TAB 325 MG-5 MG 10 2 [facility] #[id number] [place] [id number] Procedures 2D Echocardiogram Conclusions: Normal left ventricular systolic function. Normal left ventricular cavity size. Normal left ventricular wall thickness. Ejection fraction is visually estimated at 55-60 %. Tissue Doppler/Mitral Doppler indices are within normal limits. Brain CT IMPRESSION: Evaluation is mildly limited due to motion degradation. 1. No acute intracranial hemorrhage or extra-axial fluid collection. 2. Mild central greater than peripheral cerebral volume loss. 3. Minimal chronic microvascular ischemic changes. Carotid Doppler Study IMPRESSION: 1. No evidence for hemodynamically significant carotid artery stenosis. 2. Normal antegrade flow in the vertebral arteries bilaterally. Hx of Present Illness This is a 62-year-old female with comorbidities including hypertension, schizophrenia, and morbid obesity, who was brought in by rescue ambulance from a [facility] and care for further evaluation of multiple falls, who was admitted to inpatient setting for further treatment and evaluation. Hospital Course The patient was monitored on telemetry floor. There were no evidence of any significant arrhythmias. The patient underwent a 2D echocardiogram that was showing preserved left ventricular ejection fraction. The patient underwent a brain CT scan that was negative for any acute stroke. She also underwent a carotid Doppler study that was negative for any hemodynamically significant stenosis. The patient was unable to have a brain MRI done because of weight limits. Etiology of the patient's frequent falls is unclear. This could be possibly secondary to polypharmacy since the patient takes multiple medications. The patient's CUREs report was pulled that was showing the patient received 10 tablets of oxycodone from an outside provider. The patient was evaluated by physical therapy and the patient underwent multiple physical therapy sessions. Upon discharge, the patient will have home physical therapy arranged for home physical therapy and home safety evaluation. The patient's chronic problems include hypertension. The patient was maintained on antihypertensives for the same. The patient has underlying diabetes mellitus type 2. She was maintained on sliding scale insulin and metformin. The patient's hemoglobin A1c was found to be 7.8. She has history of diastolic heart failure and takes diuretics at home. This was resumed. The patient did not have any evidence of any CHF exacerbation. The patient is a current nicotine user. The patient was advised on cessation. The patient has underlying schizophrenia and she takes monthly paliperidone injections at an outside psychiatric clinic. The patient is also morbidly obese with a BMI of 46 kg/m. The patient was advised on weight reduction. The patient had a stable hospital course. The patient is back to her baseline. Therefore, the patient will be discharged home. Discharge Instructions 1. Resume home medications. 2. Follow a low-cholesterol, low carbohydrate diet. 3. Resume activities as tolerated. Rest in between activities. 4. Follow-up with your primary care physician 1 week. If you do not have a primary care physician, please call Dr. Esdras Beltre's office. 5. Please go to the nearest emergency room if you have any chest pain, focal weakness, speech disturbances, or any other unusual signs/symptoms. The patient verbalized understanding of her discharge instructions. The patient was seen in collaboration with Dr. Lanier. Home Meds Active Scripts Tramadol Hcl* (Ultram*) 50 Mg Tablet, 50 MG PO Q6H PRN for PAIN, #5 TAB Prov:RENÉ ALDANA NP 09/30/18 Lisinopril* (Lisinopril*) 40 Mg Tablet, 40 MG PO DAILY, #30 TAB Prov:SIMIN MERINO MD 11/25/15 Reported Medications Furosemide* (Furosemide*) 20 Mg Tablet, 20 MG PO DAILY, #60 TAB 09/28/18 Metformin* (Glucophage*) 1,000 Mg Tablet, 1000 MG PO BID, #60 TAB 09/28/18 Hydralazine Hcl* (Hydralazine Hcl*) 10 Mg Tablet, 10 MG PO Q8, #90 TAB 09/28/18 Discontinued Reported Medications Furosemide* (Furosemide*) 40 Mg Tablet, 40 MG PO DAILY, TAB 09/28/18 Hydroxyzine Hcl* (Hydroxyzine Hcl*) 25 Mg Tablet, 25 MG PO TID, #30 TAB 09/28/18 Discontinued Scripts Fluconazole* (Diflucan*) 150 Mg Tablet, 150 MG PO ONCE, #1 TAB Prov:SIMIN MERINO MD 11/25/15 Follow-up Plan The patient to follow-up with her primary care physician in 1 week. Primary Care Provider Not On Staff Doctor Time spent on discharge: > 30 minutes Pending Labs Laboratory Tests Test 09/29/18 17:14 09/29/18 20:38 09/30/18 07:13 09/30/18 07:56 Bedside 172 169 151 Glucose mg/dL (70-220) mg/dL (70-220) mg/dL (70-220) White Blood 8.3 Count 10^3/ul (4.8-1 0.8) Red Blood 4.40 Count 10^6/ul (4.20- 5.40) Hemoglobin 12.5 g/dl (12.0-16. 0) Hematocrit 39.5 % (37.0-47.0) Mean 89.8 Corpuscular fl (82.0-101.0 Volume ) Mean 28.4 Corpuscular pg (29.0-33.0) Hemoglobin Mean 31.6 Corpuscular g/dl (32.0-37. Hemoglobin Conc 0) ent Red Cell 18.6 Distribution % (11.5-14.5) Width Platelet Count 357 10^3/UL (140-4 15) Mean Platelet 8.8 Volume fl (7.4-10.4) Immature 0.200 Granulocytes % % (0.001-0.429 ) Neutrophils % 66.4 % (39.0-77.0) Lymphocytes % 19.4 % (15.0-51.0) Monocytes % 10.7 % (0.0-11.0) Eosinophils % 2.8 % (0.0-7.0) Basophils % 0.5 % (0.0-2.0) Nucleated Red 0.0 Blood Cells % /100WBC (0.0-0 .0) Immature 0.020 Granulocytes # 10^3/ul (0.0-0 .031) Neutrophils # 5.5 10^3/ul (1.6-7 .5) Lymphocytes # 1.6 10^3/ul (0.8-2 .9) Monocytes # 0.9 10^3/ul (0.3-0 .9) Eosinophils # 0.2 10^3/ul (0.0-0 .5) Basophils # 0.0 10^3/ul (0.0-0 .1) Nucleated Red 0.0 Blood Cells # 10^3/ul (0.0-0 .0) Sodium Level 135 mmol/L (135-14 4) Potassium 4.7 Level mmol/L (3.5-5. 1) Chloride Level 97 mmol/L (97-110 ) Carbon Dioxide 30 Level mmol/L (21-31) Anion Gap 8 (5-13) Blood Urea 15 Nitrogen mg/dl (7-20) Creatinine 0.44 mg/dl (0.44-1. 00) Est Glomerular > 60 Filtrat mL/min (>60) Rate mL/min Glucose Level 146 mg/dl (70-220) Calcium Level 9.0 mg/dl (8.4-10. 2) Phosphorus 4.6 Level mg/dl (2.5-4.9 ) Magnesium 1.9 Level mg/dl (1.7-2.5 ) RENÉ ALDANA NP Sep 30, 2018 11:00
--- NOTE | 2018-09-30 11:10 | PDOCDIS ---
Discharge Instructions CONDITION [id number] Patient Condition: [id number] Stable HOME CARE INSTRUCTIONS: [id number] Diet Instructions: [id number] Low Fat /Cholesterol Crssk2Sf Special Diet: [id number] Carbohydrate controlled. ACTIVITY: [id number] Activity Restrictions: [id number] Slowly Increase Activity Rest between Activity FOLLOW UP/APPOINTMENTS Follow-up Plan Esdras Beltre MD Specialty: Internal Medicine Office Address: [address] [place] [address] Office OTHER ORDERS: Other Orders: 1. Resume home medications. 2. Follow a low-cholesterol, low carbohydrate diet. 3. Resume activities as tolerated. Rest in between activities. 4. Follow-up with your primary care physician 1 week. If you do not have a primary care physician, please call Dr. Esdras Beltre's office. 5. Please go to the nearest emergency room if you have any chest pain, focal weakness, speech disturbances, or any other unusual signs/symptoms. RENÉ ALDANA NP Sep 30, 2018 11:10
[2018-09-30] MEDS ORDERED: TRAM50TA PO (11:12)
[2018-09-30 14:00] VITALS: BP 147/67; PULSE 67; RESP 18
== END 2018-09-30 15:17 | disposition home health service (06) | DRG 92 ==
LOC: E/R 18:32 → 6WM 20:23 → PP2 09-29 16:01
PROVIDERS: ADMIT Internal Medicine; ATTEND Internal Medicine
DX: R47.81 Slurred speech (principal); I50.30 Unspecified diastolic (congestive) heart failure; Z68.42 Body mass index [BMI] 45.0-49.9, adult; I11.0 Hypertensive heart disease with heart failure; F20.9 Schizophrenia, unspecified; E66.01 Morbid (severe) obesity due to excess calories; E11.9 Type 2 diabetes mellitus without complications; F17.210 Nicotine dependence, cigarettes, uncomplicated; R29.6 Repeated falls; T50.905A Adverse effect of unspecified drugs, medicaments and biological substances, initial encounter
CPT/HCPCS: 36415; 70450; 71045; 80048; 80053; 80061; 81003; 82550; 82553; 82962; 83036; 83690; 83735; 83880; 84100; 84439; 84443; 84484; 85025; 87086; 92610; 93005; 93306; 93880; 97116; 97162; 97530; J1170; J1644; J1815; J1940; J1956; J2060; J2270; J7030